=== PATIENT | male | born 1945 | race Caucasian/White ===

== ENCOUNTER → 2024-01-23 10:14 | Outpatient (REF) | payer MEDICARE, SELFPAY | LOC: PAVMRI 10:14 | PROVIDERS: ATTENDING PHYSICIAN Internal Medicine Rheumatology; FAMILY PHYSICIAN Family Medicine | DX: M79.671 Pain in right foot (principal) | CPT/HCPCS: 73718 ==

== ENCOUNTER → 2024-02-09 14:01 | Outpatient (REF) | payer MEDICARE, SELFPAY | LOC: RAD 14:01 | PROVIDERS: ATTENDING PHYSICIAN Family Medicine | DX: M79.604 Pain in right leg (principal); M79.605 Pain in left leg | CPT/HCPCS: 93922; 93925 ==

== ENCOUNTER → 2024-05-27 08:43 | Outpatient (REF) | payer MEDICARE, SELFPAY | LOC: RSP 08:43 | PROVIDERS: ATTENDING PHYSICIAN Internal Medicine Critical Care Medicine; FAMILY PHYSICIAN Family Medicine | DX: J45.30 Mild persistent asthma, uncomplicated (principal); R05.3 Chronic cough | CPT/HCPCS: 94727; 94729; 88738; 94010 ==

== ENCOUNTER → 2024-07-08 10:43 | Outpatient (REF) | payer MEDICARE, SELFPAY | LOC: RAD 10:43 | PROVIDERS: ATTENDING PHYSICIAN Internal Medicine Critical Care Medicine | DX: R05.3 Chronic cough (principal); B20 Human immunodeficiency virus [HIV] disease | CPT/HCPCS: 71046 ==

== ENCOUNTER 2024-08-20 06:17 | Day surgery (SDC) | payer MEDICARE, SELFPAY | END 2024-08-20 11:46 | disposition home or self-care (01) | LOC: GI 06:17 | PROVIDERS: ATTENDING PHYSICIAN Specialist | DX: K22.89 Other specified disease of esophagus (principal); K31.7 Polyp of stomach and duodenum; R05.3 Chronic cough; R13.10 Dysphagia, unspecified; Z98.890 Other specified postprocedural states; Z87.19 Personal history of other diseases of the digestive system | CPT/HCPCS: 43239; 88305; 88342 ==

== ENCOUNTER → 2024-10-05 12:23 | Outpatient (REF) | payer MEDICARE, SELFPAY | LOC: RAD 12:23 | PROVIDERS: ATTENDING PHYSICIAN Family Medicine | DX: R07.81 Pleurodynia (principal); R07.89 Other chest pain | CPT/HCPCS: 71101 ==

== ENCOUNTER → 2024-10-13 16:25 | Outpatient (REF) | payer MEDICARE, SELFPAY | LOC: RAD 16:25 | PROVIDERS: ATTENDING PHYSICIAN Family Medicine | DX: R07.81 Pleurodynia (principal); R07.89 Other chest pain; R10.12 Left upper quadrant pain | CPT/HCPCS: 71260; 74177; Q9967 ==

== ENCOUNTER → 2024-10-26 10:52 | Outpatient (REF) | payer MEDICARE, SELFPAY | LOC: HWRAD 10:52 | PROVIDERS: ATTENDING PHYSICIAN Family Medicine | DX: R74.8 Abnormal levels of other serum enzymes (principal) | CPT/HCPCS: 76700 ==

== ENCOUNTER → 2025-07-07 11:21 | Outpatient (REF) | payer MEDICARE, SELFPAY | LOC: RAD 11:21 | PROVIDERS: ATTENDING PHYSICIAN Podiatrist Foot & Ankle Surgery; FAMILY PHYSICIAN Family Medicine | DX: M19.072 Primary osteoarthritis, left ankle and foot (principal); M19.071 Primary osteoarthritis, right ankle and foot | CPT/HCPCS: 73630 ==